=== PATIENT | male | born 1965 | race African-American/Black ===

== ENCOUNTER 2020-01-06 11:50 | Emergency (ER) | payer BC ==
[2020-01-06 11:59] VITALS: BP 151/92; PULSE 73; TEMP 98.2; BMI 34.1
--- NOTE | 2020-01-06 12:20 | PDOC ---
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 States was thrown to the ground and lost consciousness for unknown amount of seconds. Was roused where he felt dizzy and nauseous after the incident. Patient refused to be evaluated for head injury that day and return home. Since that time patient states has felt mildly nauseous with a headache, feels thinking is clear, has no numbness or tingling to hands or feet, no drainage from nose or ears. Timing/Duration: reports: other (2 days ) Severity: Yes: moderate Associated Symptoms: reports: fatigue, loss of consciousness, weakness Past History - Travel Traveled outside of the country in the last 30 days: No Close contact w/someone who was outside of country & ill: No - Past Medical History Allergies/Adverse Reactions: Allergies Allergy/AdvReac Type Severity Reaction Status Date / Time No Known Allergies Allergy Verified 01/06/20 11:58 Home Medications: Ambulatory Orders Amlodipine Besylate/Benazepril [Lotrel 10-20 mg Capsule] 1 cap PO DAILY Pravastatin Sodium [Pravachol (Nf)] 40 mg PO DAILY 01/06/20 COPD: No HTN: Yes Hypercholesterolemia: Yes - Psycho Social/Smoking Cessation Hx Smoking History: Never smoked Information on smoking cessation initiated: No Hx Alcohol Use: No Drug/Substance Use Hx: No Review of Systems - Review of Systems Able to Perform ROS?: Yes Is the patient limited Albanian proficient: Yes Constitutional: Yes: Symptoms Reported, See HPI, Malaise. No: Fever HEENTM: Yes: Symptoms Reported. No: Blurred Vision, Nose Pain, Nose Congestion Respiratory: Yes: See HPI. No: Symptoms reported Integumentary: Yes: Symptoms Reported, See HPI, Bruising Neurological: Yes: Symptoms reported, See HPI, Headache. No: Numbness, Paresthesia, Seizure, Tingling, Unsteady Gait All Other Systems: Reviewed and Negative *Physical Exam - Vital Signs Last Vital Signs Temp Pulse Resp BP Pulse Ox 98.2 F 73 19 151/92 97 01/06/20 11:55 01/06/20 11:55 01/06/20 11:55 01/06/20 11:55 01/06/20 11:55 - Physical Exam General Appearance: Yes: Nourished, Appropriately Dressed, Apparent Distress, Mild Distress HEENT: positive: RONDA, Normal ENT Inspection, TMs Normal (No hemotympanum, no drainage from nose or ears, no evidence of skull fracture, no cha sign), Pharynx Normal, Other (no redness/ swelling / crepitus or stepoff to scalp at site of impact. ). negative: Nasal Congestion, Rhinorrhea Neck: positive: Supple (No C-spine tenderness crepitus or step-offs, has some mild tenderness along the paravertebral spinous musculature but no true bone pain. Full range of motion). negative: Tender, Decreased range of motion Respiratory/Chest: positive: Lungs Clear, Normal Breath Sounds Cardiovascular: positive: Regular Rhythm Gastrointestinal/Abdominal: positive: Soft. negative: Tender Musculoskeletal: positive: Normal Inspection. negative: Decreased Range of Motion, Vertebral Tenderness Extremity: positive: Normal Capillary Refill, Normal Inspection, Normal Range of Motion. negative: Tender Integumentary: positive: Normal Color, Dry, Warm, Pale Neurologic: positive: rn faculty II-XII NML intact, Fully Oriented, Alert, Normal Mood/ Affect, Normal Response, Motor Strength 5/5 ED Treatment Course - RADIOLOGY Radiology Studies Ordered: Category Date Time Status HEAD CT WITHOUT CONTRAST [CT] Stat CT Scan 01/06/20 12:16 Ordered ED Progress Note - Progress Note Progress Note: 01/06/20 12:57 Head injury, CAT scan reports negative for fractures or intracerebral pathology. Patient will be discharged with mild concussive syndrome and have clearance completed by PMD to return to work. 01/06/20 14:25 Discharge - Discharge Information Problems reviewed: No Clinical Impression/Diagnosis: Concussion Qualifiers: Encounter type: initial encounter Loss of consciousness presence/duration: with LOC of unspecified duration Qualified Code(s): S06.0X9A - Concussion with loss of consciousness of unspecified duration, initial encounter Head injury Qualifiers: Encounter type: initial encounter Qualified Code(s): S09.90XA - Unspecified injury of head, initial encounter Condition: Stable Disposition: HOME - Admission No - Follow up/Referral - Patient Discharge Instructions Patient Printed Discharge Instructions: DI for Closed Head Injury Additional Instructions: Rest, avoid strenuous activity or heavy lifting until symptoms have resolved Keep well-hydrated, avoid alcohol or any other drug use May use Tylenol / Motrin for pain relief as needed Follow-up with PMD in 1 to 2 days as needed or reevaluation May need clearance to return to work once symptoms have resolved from private physician. - Post Discharge Activity Work/Back to School Note: Back to Work
== END 2020-01-06 14:25 | disposition home or self-care (01) ==
LOC: JERFT 11:50
DX: S06.0X9A Concussion with loss of consciousness of unspecified duration, initial encounter (principal); W20.8XXA Other cause of strike by thrown, projected or falling object, initial encounter; Y93.89 Activity, other specified; Y92.69 Other specified industrial and construction area as the place of occurrence of the external cause; Y99.0 Civilian activity done for income or pay
CPT/HCPCS: 70450-TC; 99284-25

== ENCOUNTER 2020-08-15 05:51 | Emergency (ER) | payer OTHER, BC ==
[2020-08-15] MEDS ORDERED: DEXAMETHASONE SOD PHOSPHATE 10 MG/1 ML VIAL IVPUSH ONE (06:04)
[2020-08-15] MEDS ORDERED: FAMOTIDINE 20 MG/50 ML IVPB 20 MG/50 ML MG IVPB ONE (06:04)
[2020-08-15 06:06] VITALS: TEMP 98; BMI 32.5
--- OUTSIDE RECORDS SUMMARY | 2020-08-15 06:35 | XMS ---
:1965 Author Organization [facility] Care Team Providers Name Role Phone David Nino MD Unavailable Unavailable Re-disclosure Warning The records that you are about to access may contain information from federally- assisted alcohol or drug abuse programs. If such information is present, then the following federally mandated warning applies: This information has been disclosed to you from records protected by federal confidentiality rules (42 CFR part 2). The federal rules prohibit you from making any further disclosure of this information unless further disclosure is expressly permitted by the written consent of the person to whom it pertains or as otherwise permitted by 42 CFR part 2. A general authorization for the release of medical or other information is NOT sufficient for this purpose. The Federal rules restrict any use of the information to criminally investigate or prosecute any alcohol or drug abuse patient.The records that you are about to access may contain highly sensitive health information, the redisclosure of which is protected by Article 27-F of the [facility] Public Health law. If you continue you may haveaccess to information: Regarding HIV / AIDS; Provided by facilities licensed or operated by the [facility] Office of Mental Health; or Provided by the [facility] Office for People With Developmental Disabilities. If such information is present, then the following [facility] mandated warning applies: This information has been disclosed to you from confidential records which are protected by state law. State law prohibits you from making any further disclosure of this information without the specific written consent of the person to whom it pertains, or as otherwise permitted by law. Any unauthorized further disclosure in violation of state law may result in a fine or intermediate sentence or both. A general authorization for the release of medical or other information is NOT sufficient authorization for further disclosure. Advance Directives Directive Description Operations/Dispatch Product Support Analyst Status Observation Data S ource(s) Description Advance No completed [facility] Advance No [facility] Allergies and Adverse Reactions Type Description Substance Reaction Status Data Source(s ) Drug allergy No Known Allergies No Known NO KNOWN ALLERG [facility] Allerg[facility] Encounters Encounter Providers Location Date Indications Data Source(s ) Outpatient Attender: David 08/11/2020 CERVICAL DISC Micah Nino MD 03:30:00 PM DISORDER WITH Hospital EDT - RADICULOPATHY 08/12/2020 ,[facility] 02:03:00 PM EDT CERVICAL DISC DISORDER WITH RADICULOPATH Y ,[facility] Patient discharged. Functional Status Medications Medication Brand Start Product Dose Route Administrative Pharmacy [facility] Indications Reaction Description Data Name Date Form Instructions Instructions Source(s) Oxycodone Oxycod 08/12/ TABLET 5 mg ORAL active [facility] Hydrochlori one 2020 [facility] de 5 MG Hcl 01:32: Hospital Oral Tablet 00 PM Oxycodone EDT Hcl Pravastatin Pravas TABLET 40 mg ORAL active W [facility] Sodium 20 tatin [facility] Oral Sodium Hospital Tablet famciclovir Famcic TABLET 500 ORAL active [facility] 500 MG Oral lovir mg [facility] Tablet Hospital Famciclovir Amlodipine Amlodi CAPSULE 1 ORAL active [facility] 10 MG / pine/B {Caps [facility] Benazepril enazep ule} Hospita l hydrochlori ril de 20 MG Hcl Oral Capsule [Lotrel] Amlodipine/ Benazepril Hcl Insurance Providers Payer name Policy type Policy ID Covered Covered libertarian's Policy P trey / Coverage libertarian ID relationship to [place] [employer] ormation type [place] [id number] PT [id number] OTHER STATE [id number] PT [id number] INSURANCE [id number] [facility] POS [id number] SP [id number] Surgeries/Procedures Procedure Description Date Indications Data Source(s) Radiography of cervical 08/11/2020 [facility] spine (procedure) 12:00:00 AM EDT Fluoroscopy (procedure) 08/11/2020 [facility] 12:00:00 AM EDT Oxygen therapy 08/11/2020 [facility] (procedure) 12:00:00 AM EDT Cervical arthrodesis by 08/11/2020 [facility] anterior technique 12:00:00 AM EDT (procedure) Results ID Date Data Source [id number] 08/12/2020 08:39:[address] [facility] Name Value Range Interpretation Description Data Sup porting Code Source(s) Document(s ) Calcium 9.1 mg/dL [facility] [Mass/volume Hospital ] in Serum or Plasma ID Date Data Source [id number] 08/12/2020 08:39:[address] [facility] Name Value Range Interpretation Code Description Data Azra rce(s) Supporting Document(s ) Urea 8.8 [facility] nitrogen/Cre Hospital atinine [Mass Ratio] in Serum or Plasma ID Date Data Source [id number] 08/12/2020 08:39:00 AM EDT [facility] Value Range Interpretation Description Data Sup porting Code Source(s) Document(s ) Creatinine 0.8 mg/dL [facility] [Mass/volume] Hospital in Serum or Plasma ID Date Data Source [id number] 08/12/2020 08:39:[address] [facility] Name Value Range Interpretation Description Data Sup porting Code Source(s) Document(s ) Urea nitrogen 7 mg/dL [facility] [Mass/volume] [facility] in Serum or Plasma ID Date Data Source [id number] 08/12/2020 08:39:00 AM EDT [facility] Name Value Range Interpretation Code Description Data Azra rce(s) Supporting Document(s ) Anion gap in 12 [facility] Serum or [facility] Plasma ID Date Data Source [id number] 08/12/2020 08:39:[address] [facility] Name Value Range Interpretation Description Data Sup porting Code Source(s) Document(s ) Carbon 27 mmol/L [facility] dioxide, Hospital total [Moles/volu me] in Serum or Plasma ID Date Data Source [id number] 08/12/2020 08:39:[address] [facility] Name Value Range Interpretation Description Data Sup porting Code Source(s) Document(s ) Chloride 100 [facility] [Moles/volum mmol/L Hospital e] in Serum or Plasma ID Date Data Source [id number] 08/12/2020 08:39:[address] [facility] Name Value Range Interpretation Description Data Sup porting Code Source(s) Document(s ) Potassium 3.9 [facility] [Moles/volume mmol/L Hospital ] in Serum or Plasma ID Date Data Source [id number] 08/12/2020 08:39:[address] [facility] Name Value Range Interpretation Description Data Sup porting Code Source(s) Document(s ) Sodium 135 mmol/L [facility] [Moles/volu Hospital me] in Serum or Plasma ID Date Data Source [id number] 08/12/2020 08:39:[address] [facility] Name Value Range Interpretation Description Data Sup porting Code Source(s) Document(s ) Glucose 166 mg/dL [facility] [Mass/volume Hospital ] in Serum or Plasma ID Date Data Source [id number] 08/12/2020 08:39:[address] [facility] Name Value Range Interpretation Code Description Data Supporting Source(s) Document(s ) NUCLEATED RBCS 0.0 % [facility] (AUTO Hospital DIFF%)DIS ID Date Data Source [id number] 08/12/2020 08:39:00 AM EDT [facility] Value Range Interpretation Description Data Sup porting Code Source(s) Document(s ) Differential MANUAL [facility] cell count Hospital method - Blood ID Date Data Source [id number] 08/12/2020 08:39:00 AM EDT [facility] Value Range Interpretation Code Description Data Azra rce(s) Supporting Document(s ) Cells 100 [facility] Hospital Total [#] in Blood ID Date Data Source [id number] 08/12/2020 08:39:00 AM EDT [facility] Value Range Interpretation Code Description Data Supporting Source(s) Document(s ) PLATELET NORMAL [facility] Hospital ID Date Data Source [id number] 08/12/2020 08:39:00 AM EDT [facility] Value Range Interpretation Code Description Data Azra rce(s) Supporting Document(s ) TARGET CELLS [facility] Hospital ID Date Data Source [id number] 08/12/2020 08:39:00 AM EDT [facility] Value Range Interpretation Code Description Data Azra rce(s) Supporting Document(s ) OVALOCYTES [facility] ID Date Data Source [id number] 08/12/2020 08:39:00 AM EDT [facility] Value Range Interpretation Code Description Data Supporting Source(s) Document(s ) POLYCHROMASIA [facility] Hospital ID Date Data Source [id number] 08/12/2020 08:39:00 AM EDT [facility] Value Range Interpretation Code Description Data Azra rce(s) Supporting Document(s ) MICROCYTOSIS [facility] ID Date Data Source [id number] 08/12/2020 08:39:[address] [facility] Name Value Range Interpretation Description Data Sup porting Code Source(s) Document(s ) POIKILOCYTOSIS [facility] ID Date Data Source [id number] 08/12/2020 08:39:00 AM EDT [facility] Value Range Interpretation Code Description Data Azra rce(s) Supporting Document(s ) ANISOCYTOSIS [facility] ID Date Data Source [id number] 08/12/2020 08:39:00 AM EDT [facility] Value Range Interpretation Description Data Sup porting Code Source(s) Document(s ) Monocytes 0.23 [facility] [#/volume] in 10*3/uL Hospital Blood by Manual count ID Date Data Source [id number] 08/12/2020 08:39:00 AM EDT [facility] Value Range Interpretation Description Data Sup porting Code Source(s) Document(s ) Lymphocytes 0.11 [facility] [#/volume] in 10*3/uL Hospital Blood by Manual count ID Date Data Source [id number] 08/12/2020 08:39:00 AM EDT [facility] Value Range Interpretation Description Data Sup porting Code Source(s) Document(s ) Neutrophils 11.06 [facility] [#/volume] in 10*3/uL Hospital Blood by Manual count ID Date Data Source [id number] 08/12/2020 08:39:00 AM EDT [facility] Value Range Interpretation Description Data Sup porting Code Source(s) Document(s ) Monocytes/100 2 % [facility] leukocytes in Hospital Blood by Manual count ID Date Data Source [id number] 08/12/2020 08:39:00 AM EDT [facility] Name Value Range Interpretation Description Data Sup porting Code Source(s) Document(s ) Lymphocytes/100 1 % [facility] leukocytes in Hospital Blood by Manual count ID Date Data Source [id number] 08/12/2020 08:39:00 AM EDT [facility] Value Range Interpretation Description Data Sup porting Code Source(s) Document(s ) Band form 3 % [facility] neutrophils/100 Hospital leukocytes in Blood ID Date Data Source [id number] 08/12/2020 08:39:00 AM EDT [facility] Value Range Interpretation Description Data Sup porting Code Source(s) Document(s ) Neutrophils/100 94 % [facility] leukocytes in [facility] Blood by Manual count ID Date Data Source [id number] 08/12/2020 08:39:00 AM EDT [facility] Value Range Interpretation Description Data Sup porting Code Source(s) Document(s ) Platelet mean 9.7 fL [facility] [Entitic volume] in Blood by Automated count ID Date Data Source [id number] 08/12/2020 08:39:00 AM EDT [facility] Value Range Interpretation Description Data Sup porting Code Source(s) Document(s ) Platelets 239 [facility] [#/volume] in 10*3/uL Hospital Blood by Automated count ID Date Data Source [id number] 08/12/2020 08:39:00 AM EDT [facility] Value Range Interpretation Description Data Sup porting Code Source(s) Document(s ) Erythrocyte 10.2 % [facility] distribution Hospital width [Ratio] by Automated count ID Date Data Source [id number] 08/12/2020 08:39:00 AM EDT [facility] Value Range Interpretation Description Data Sup porting Code Source(s) Document(s ) Erythrocyte mean 33.8 [facility] corpuscular g/dL Hospital hemoglobin concentration [Mass/volume] by Automated count ID Date Data Source [id number] 08/12/2020 08:39:00 AM EDT [facility] Value Range Interpretation Description Data Sup porting Code Source(s) Document(s ) Erythrocyte 28.7 pg [facility] corpuscular hemoglobin [Entitic mass] by Automated count ID Date Data Source [id number] 08/12/2020 08:39:00 AM EDT [facility] Value Range Interpretation Description Data Sup porting Code Source(s) Document(s ) Erythrocyte 84.7 fL [facility] corpuscular volume [Entitic volume] by Automated count ID Date Data Source [id number] 08/12/2020 08:39:00 AM EDT [facility] Value Range Interpretation Description Data Sup porting Code Source(s) Document(s ) Hematocrit 40.5 % [facility] [Volume Hospital Fraction] of Blood by Automated count ID Date Data Source [id number] [facility] Description Data Sup porting Code Source(s) Document(s ) Hemoglobin 13.7 g/dL [facility] [Mass/volume] Hospital in Blood ID Date Data Source [id number] 08/12/2020 08:39:00 AM EDT [facility] Value Range Interpretation Description Data Sup porting Code Source(s) Document(s ) Erythrocytes 4.78 [facility] [#/volume] in 10*6/uL Hospital Blood by Automated count ID Date Data Source [id number] 08/12/2020 08:39:00 AM EDT [facility] Value Range Interpretation Description Data Sup porting Code Source(s) Document(s ) Leukocytes 11.4 [facility] [#/volume] in 10*3/uL Hospital Blood by Automated count ID Date Data Source [id number] 08/11/2020 05:41:[address] [facility] Heel Room Supervisor:KENAN ARCE Name Value Range Interpretation Description Data Sup porting Code Source(s) Document(s ) Glucose 90 mg/dL [facility] [Mass/volume] [facility] in Capillary blood by Glucometer ID Date Data Source [id number] 08/11/2020 10:57:[address] [facility] Heel Room Supervisor:SHIELA HENRY Name Value Range Interpretation Code Description Data Azra rce(s) Supporting Document(s ) POC SARS NEGATIVE [facility] COV2 Hospital ID Date Data Source [id number] 05/20/2020 10:48:00 AM EDT [facility] Name Value Range Interpretation Description Data Sup porting Code Source(s) Document(s ) SARS [facility] coronavirus 2 RNA This lab was ordered by [employer] [facility] and reported by [facility]. Procedure Social History Code Duration Value Status Description Data Source(s ) Smoking Unknown if ever completed Unknown if ever [facility] smoked smoked Hospital Vital Signs ID Date Data Source UNK Name Value Range Interpretation Code Description Data Source(s) Diastolic blood 75 mm[Hg] 75 mm[Hg] [facility] Systolic blood 148 mm[Hg] 148 mm[Hg] [facility] Respiratory rate 19 /min 19 /min [facility] Heart rate 68 /min 68 /min [facility] Body temperature 36.96616 [place] 36.21571 Deed[place] [facility] Body temperature 98.4 [degF] 98.4 [degF] [facility] Body mass index 31.7 kg/m2 31.7 kg/m2 [facility] ins (BMI) [Ratio] Hospital Body weight 218 [lb_av] 218 [lb_av] [facility]
--- NOTE | 2020-08-15 07:36 | PDOC ---
History of Present Illness - General Chief Complaint: Allergic Reaction Stated Complaint: S/P SURGICAL PAIN, LIP SWELLING Time Seen by Provider: 08/15/20 07:09 History Source: Patient, Family Exam Limitations: No Limitations - History of Present Illness Initial Comments: 08/15/20 07:36 Clarence Shannon is a 55M with PMH HTN on amlodipine/benazepril, HLD on pravastatin, POD#5 from an elective cervical spine surgery on oxycodone, presenting with upper lip swelling. Patient has been taking amlodipine/benazepril and pravastatin daily for the last 6 years. 5 days ago had cervical spine surgery for fracture/injury, was in hospital getting oxy and d/c home 4 days ago. First time taking oxy. Yesterday began having upper lip swelling, tried taking Benadryl 50mg without success, got worse later in the day, tried Mucinex for congestion and 50mg more Benadryl, no improvement. Tolerating secretions, no SOB, voice normal, no facial swelling, rash, itching. No allergies to anything known. No prior problems like this. Has tried using new soap in the last few days. Also having constipation. Has been using oxy q6hr for 4 days. PMD Marina Denies alcohol/drugs/tobacco Past History - Medical History Allergies/Adverse Reactions: Allergies Allergy/AdvReac Type Severity Reaction Status Date / Time No Known Allergies Allergy Verified 08/15/20 06:05 Home Medications: Ambulatory Orders Amlodipine Besylate/Benazepril [Lotrel 10-20 mg Capsule] 1 cap PO DAILY 01/06/20 Pravastatin Sodium [Pravachol (Nf)] 40 mg PO DAILY 01/06/20 Acetaminophen [Tylenol 8 Hour] 650 mg PO TID PRN #21 tablet.er 08/15/20 Amlodipine Besylate 10 mg PO DAILY #10 tablet 08/15/20 Diphenhydramine [Benadryl -] 50 mg PO BID PRN #20 capsule 08/15/20 Polyethylene Glycol 3350 [Miralax (For Bowel Prep) -] 255 gm PO BID PRN #1 btl 08/15/20 Prednisone [Prednisone 50 MG TABLETS] 50 mg PO DAILY #4 tablet 08/15/20 COPD: No HTN: Yes Hypercholesterolemia: Yes - Psycho-Social/Smoking History Smoking History: Never smoked Have you smoked in the past 12 months: No Information on smoking cessation initiated: No - Substance Abuse Hx (Audit-C & DAST Scrn) How often the patient has a drink containing alcohol: Never Score: In Men: 4 or > Positive; In Women: 3 or > Positive: 0 Screen Result (Pos requires Nsg. Audit-10AR): Negative In the last yr the pt used illegal drug/Rx for NonMed reason: No Score: Yes response is considered Positive: 0 Screen Result (Positive result requires Nsg. DAST-10): Negative Review of Systems - Review of Systems Able to Perform ROS?: Yes Constitutional: No: Symptoms Reported HEENTM: No: Symptoms Reported Respiratory: No: Cough, Shortness of Breath, SOB with Exertion, SOB at Rest, Wheezing, Productive cough Cardiac (ROS): No: Symptoms Reported ABD/GI: Yes: Symptoms Reported, Constipated. No: Diarrhea, Nausea, Poor Appetite, Poor Fluid Intake, Vomiting : No: Symptoms Reported Musculoskeletal: No: Symptoms Reported Integumentary: Yes: Symptoms Reported, Other (lip swelling) Neurological: No: Symptoms reported Endocrine: No: Symptoms Reported Hematologic/Lymphatic: No: Symptoms Reported All Other Systems: Reviewed and Negative *Physical Exam - Vital Signs Last Vital Signs Temp Pulse Resp BP Pulse Ox 98.0 F 86 20 135/75 99 08/15/20 06:05 08/15/20 06:05 08/15/20 06:05 08/15/20 06:05 08/15/20 06:05 - Physical Exam General Appearance: Yes: Nourished, Appropriately Dressed, Other (resting comfortably in bed in NAD, satting 99% on RA). No: Apparent Distress HEENT: positive: EOMI, RONDA, Normal Voice, Symmetrical, Pharynx Normal. negative: Scleral Icterus (R), Scleral Icterus (L) Neck: positive: Trachea midline, Normal Thyroid, Supple, Other ([place] collar in place). negative: Tender, Rigid, Lymphadenopathy (R), Lymphadenopathy (L) Respiratory/Chest: positive: Lungs Clear, Normal Breath Sounds. negative: Chest Tender, Respiratory Distress, Accessory Muscle Use, Labored Respiration, Rapid RR, Crackles, Rales, Rhonchi, Stridor, Wheezing Cardiovascular: positive: Regular Rhythm, Regular Rate. negative: Murmur Gastrointestinal/Abdominal: positive: Normal Bowel Sounds, Flat, Soft. negative: Tender, Organomegaly, Pulsatile Mass, Guarding, Rebound Musculoskeletal: positive: Normal Inspection. negative: CVA Tenderness, CVA Tenderness (L), Decreased Range of Motion Extremity: positive: Normal Capillary Refill, Normal Inspection, Normal Range of Motion, Pelvis Stable. 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, Fully Oriented, Alert, Normal Mood/Affect, Normal Response, Motor Strength 03/16 ED Treatment Course - Medications Given in the ED: ED Medications Discontinued Medications Generic Name Dose Route Start Last Admin Trade Name Freq PRN Reason Stop Dose Admin Dexamethasone Sodium Phosphate 10 mg 08/15/20 06:04 08/15/20 06:38 Decadron Injection - IVPUSH 08/15/20 06:05 10 mg ONCE ONE Administration Diphenhydramine HCl 25 mg 08/15/20 06:04 08/15/20 06:38 Benadryl Injection - IVPUSH 08/15/20 06:05 25 mg ONCE ONE Administration Famotidine/Sodium Chloride 20 mg in 50 mls @ 100 mls/hr 08/15/20 06:04 08/15/20 06:37 Pepcid 20 Mg Premixed Ivpb - IVPB 08/15/20 06:33 100 mls/hr ONCE ONE Administration Medical Decision Making - Medical Decision Making 08/15/20 07:36 Patient presents with upper lip swelling after a recent cervical spine surgery, reports taking ACEI chronically for years, has tried a new body soap, and has started taking oxycodone and Mucinex. Patient has no rash or airway compromise at this time, given Decadron, Pepcid, and Benadryl IV. Given no rash, pruritis, facial swelling, and isolated upper lip swelling, likely having bradykinin reaction to ACEI. Monitoring for airway over next few hours, likely eligible for d/c home with PMD and surgery f/u, instructions to stop taking ACEI, prednisone/Benadryl for allergy, Miralax for constipation. Called placed to Dr. Gray for consultation for medication change. 08/15/20 10:[address] Gray. Re-evaluated after 4 hours in ED observed, in NAD, breathing well, no rash, no significant change to lip swelling. Stable for d/c home with PMD f/u with steroids and Benadryl, recommendation to not take ACEI and send Rx for prednisone/Benadryl and only amlodipine. Patient understands and will f/u. Discharge - Discharge Information Problems reviewed: Yes Clinical Impression/Diagnosis: Swelling of upper lip Allergic reaction caused by a drug Qualifiers: Encounter type: initial encounter Qualified Code(s): T78.40XA - Allergy, unspecified, initial encounter Condition: Stable Disposition: HOME - Additional Discharge Information Prescriptions: Amlodipine Besylate 10 mg PO DAILY #10 tablet Diphenhydramine [Benadryl -] 50 mg PO BID PRN #20 capsule PRN Reason: Allergies Polyethylene Glycol 3350 [Miralax (For Bowel Prep) -] 255 gm PO BID PRN #1 btl PRN Reason: Constipation Prednisone [Prednisone 50 MG TABLETS] 50 mg PO DAILY #4 tablet - Follow up/Referral Referrals: Jim Gray MD [Primary Care Provider] - - Patient Discharge Instructions Additional Instructions: Today you were seen for an allergic reaction. Your lip swelling is probably being caused by a medication you take every day called benazepril, which is a component of your blood pressure medication. Please stop taking this, as your swelling may get worse if you continue. We have sent a prescription for the other half of your blood pressure medication called amlodipine, take this every day as you normally would. The swelling will go down on its own over the next few days. At home, please continue to take steroids we have prescribed to help with the swelling, and Benadryl was sent in case you need it. Stop using the new soap, but you should be able to take oxycodone without issues as prescribed, and we have sent Tylenol to your pharmacy to take instead every [address] Gray in the next week for further care, and your surgeon as scheduled. If you experience any worsening shortness of breath, swelling, fever, rash, or any other new or concerning symptoms, please return to the emergency room. - Post Discharge Activity
--- NOTE | 2020-08-15 08:00 | PDOC ---
Attending Attestation - Resident Resident Name: Christiano Haywood - ED Attending Attestation I have performed the following: I have examined & evaluated the patient, The case was reviewed & discussed with the resident, I agree w/resident's findings & plan, Exceptions are as noted - HPI HPI: 08/15/20 07:54 55y M hx of htn, hl, sp recent spine surgery presents with lip swelling after taking a nap, took some benedryl without significant improvement. He went to bed and noticed the swelling worsend this morning so came to the ED for evaluation. He denies any associated symptoms such as cp, sob, dizziness, n/v, abd pain, difficulty swalloing/breathing. Pt has been taking oxycodone for his pain, that he has continued since discharge from the hospital. He has been on amlodipine/benezapril for the past 6 years and has not had any changes of his medications. Exam: GENERAL: The patient is awake, alert, and fully oriented, Nontoxic - in no acute distress. HEAD: Normocephalic, atraumatic. EYES: extraocular movements intact, sclera anicteric, conjunctiva clear. ENT: Moist mucous membranes. Angioedema of the upper lip, posterior pharynx patent and symmetric, no tongue swelling, slightly hoarse voice (unchanged since the surgery, before swelling started) NECK: Normal range of motion, supple LUNGS: Breath sounds equal, clear to auscultation bilaterally. No wheezes, no rhonchi, no rales. HEART: Regular rate and rhythm, normal S1 and S2 without murmur, rub or gallop. ABDOMEN: Soft, nontender, No guarding, no rebound. No CVA tenderness EXTREMITIES: Normal range of motion, no edema. NEUROLOGICAL: No facial assymetry, Normal speech, PSYCH: Normal mood, normal affect. SKIN: Warm, Dry, normal turgor, No rashes noted. Concern for possible angioedema. Unclear trigger potentially may be an allergic reaction however may also be NATTY inhibitor induced. We will have the patient DC the benazepril, will discuss with PMD regarding a new medications for his blood pressure. The patient was given Solu-Medrol and Benadryl. We will continue to observe the patient to ensure it is not worsening. Will reassess - Physicial Exam PE: 08/19/20 08:25 see above - Medical Decision Making Pt feeling better at discharge. giovanni improved will dc with prednisone return precautions were discussed Discharge - Discharge Information Problems reviewed: Yes Clinical Impression/Diagnosis: Swelling of upper lip Allergic reaction caused by a drug Qualifiers: Encounter type: initial encounter Qualified Code(s): T78.40XA - Allergy, unspecified, initial encounter Condition: Stable Disposition: HOME - Additional Discharge Information Prescriptions: Amlodipine Besylate 10 mg PO DAILY #10 tablet Diphenhydramine [Benadryl -] 50 mg PO BID PRN #20 capsule PRN Reason: Allergies Polyethylene Glycol 3350 [Miralax (For Bowel Prep) -] 255 gm PO BID PRN #1 btl PRN Reason: Constipation Prednisone [Prednisone 50 MG TABLETS] 50 mg PO DAILY #4 tablet Acetaminophen [Tylenol 8 Hour] 650 mg PO TID PRN #21 tablet.er PRN Reason: Pain Level 6-10 - Follow up/Referral Referrals: Jim Gray MD [Primary Care Provider] - - Patient Discharge Instructions Additional Instructions: Today you were seen for an allergic reaction. Your lip swelling is probably being caused by a medication you take every day called benazepril, which is a component of your blood pressure medication. Please stop taking this, as your swelling may get worse if you continue. We have sent a prescription for the other half of your blood pressure medication called amlodipine, take this every day as you normally would. The swelling will go down on its own over the next few days. At home, please continue to take steroids we have prescribed to help with the swelling, and Benadryl was sent in case you need it. Stop using the new soap, but you should be able to take oxycodone without issues as prescribed, and we have sent Tylenol to your pharmacy to take instead every [address] Gray in the next week for further care, and your surgeon as scheduled. If you experience any worsening shortness of breath, swelling, fever, rash, or any other new or concerning symptoms, please return to the emergency room. - Post Discharge Activity
[2020-08-15] MEDS ORDERED: ACETAMINOPHEN 1000 MG/100 ML VIAL (NON FORMULARY) IVPB ONE (08:19)
[2020-08-15] MEDS ORDERED: ACETAMINOPHEN INJECTION 100 ML IVPB ONE (08:37)
[2020-08-15 10:50] VITALS: BP 124/84; PULSE 70
== END 2020-08-15 10:51 | disposition home or self-care (01) ==
LOC: JER 05:51
PROC: 3E0333Z Introduction of Anti-inflammatory into Peripheral Vein, Percutaneous Approach (ICD-10-PCS; principal; 2020-08-15)
PROC: 3E033GC Introduction of Other Therapeutic Substance into Peripheral Vein, Percutaneous Approach (ICD-10-PCS; 2020-08-15)
DX: R22.0 Localized swelling, mass and lump, head (principal); T78.40XA Allergy, unspecified, initial encounter
CPT/HCPCS: 99284-25; J0131; J1100